=== PATIENT | female | born 1955 | race Caucasian/White ===

== ENCOUNTER 2016-08-12 10:50 | Outpatient (CLI) | payer BC | END 2016-08-12 10:51 | disposition home or self-care (01) | DX: N76.0 Acute vaginitis (principal) ==

== ENCOUNTER → 2016-12-20 | Outpatient (CLI) | payer BC | LOC: LAB.R 13:30 | PROVIDERS: ATTEND Physician Assistant Medical | DX: N39.0 Urinary tract infection, site not specified (principal) | CPT/HCPCS: 81001; 87086 ==

== ENCOUNTER 2017-12-04 11:20 | Outpatient (CLI) | payer OTHER ==
[2017-12-04 17:24] LABS: BASOPHILS % (AUTO) 0.7 %; EOSINOPHILS # (AUTO) 0.1 10^3/uL (0.0-0.7); EOSINOPHILS % (AUTO) 1.9 %; HGB - HEMOGLOBIN 13.2 g/dL (12.0-16.0); LYMPHOCYTES # (AUTO) 1.3 10^3/uL (1.5-3.5); LYMPHOCYTES % (AUTO) 24.9 %; MEAN CORPUSCULAR HEMOGLOBIN 30.8 pg (27.0-31.0); MEAN CORPUSCULAR HGB CONC 34.1 g/dL (32.0-36.0); MEAN CORPUSCULAR VOLUME 90.2 fL (81.0-99.0); MEAN PLATELET VOLUME 6.9 fL (7.9-10.8); MONOCYTES # (AUTO) 0.5 10^3/uL (0.0-1.0); MONOCYTES % (AUTO) 9.2 %; NEUTROPHILS # (AUTO) 3.2 10^3/uL (1.5-6.6); NEUTROPHILS % (AUTO) 63.3 %; PLT - PLATELET COUNT 304 10^3/uL (130-450); RED BLOOD COUNT 4.29 10^6/uL (4.20-5.40); RED CELL DISTRIBUTION WIDTH 13.6 % (12.0-15.0); WHITE BLOOD COUNT 5.1 x10^3/uL (4.8-10.8)
[2017-12-04 17:38] LABS: ALBUMIN 3.6 g/dL (3.2-5.5); ALBUMIN/GLOBULIN RATIO 0.9 (1.0-2.2); BILIRUBIN,TOTAL 0.3 mg/dL (0.2-1.0); CALCIUM 9.1 mg/dL (8.5-10.3); CREATININE 0.8 mg/dL (0.4-1.0); TOTAL PROTEIN 7.5 g/dL (6.7-8.2)
== END 2017-12-04 11:21 | disposition home or self-care (01) ==
LOC: LAB.F 11:20
PROVIDERS: ATTEND Internal Medicine
DX: B97.89 Other viral agents as the cause of diseases classified elsewhere (principal)
CPT/HCPCS: 36415; 80053; 85025

== ENCOUNTER 2019-03-01 08:00 | Outpatient (CLI) | payer BC ==
[2019-03-01 17:48] LABS: CANDIDA GROUP DNA NEGATIVE (NEGATIVE); CANDIDA KRUSEI DNA NEGATIVE (NEGATIVE); TRICHOMONAS VAGINALIS DNA NEGATIVE (NEGATIVE)
== END 2019-03-01 08:01 | disposition home or self-care (01) ==
LOC: LAB.R 08:00
PROVIDERS: ATTEND Obstetrics & Gynecology
DX: N76.0 Acute vaginitis (principal)
CPT/HCPCS: 87661; 87801

== ENCOUNTER 2019-11-27 15:51 | Outpatient (CLI) | payer OTHER ==
--- NOTE | 2019-11-27 19:06 | Ultrasound Report ---
PROCEDURE: Pelvic w/Transvaginal INDICATIONS: THICKENED ENDOMETRUIM TECHNIQUE: Real-time scanning was performed of the pelvic organs, with image documentation. Additional endovagi nal scanning was necessary due to incomplete visualization of the adnexal and endometrial structures by transabdominal scanning. COMPARISON: None. FINDINGS: Transabdominal scanning: Limited scanning through the kidneys shows no hydronephrosis. No pathologi c free abdominal or pelvic fluid. Endovaginal scanning: Uterus: Uterus is normal in size at 7.9 x 3.5 x 4.7 cm. The endometrium measures 7 mm in combined t hickness. A 5 mm diameter cyst is present within the endometrium. There is a right anterior subserosa l fibroid which measures 2.1 x 1.8 x 2.0 cm and previously measured 2.1 x 1.9 x 1.5 cm. There is a le ft anterior subserosal fibroid which measures 0.9 x 0.8 x 0.8 cm that previously measured 1.2 x 1.0 x 0.7 cm. There is a midline anterior intramural fibroid which measures 0.7 x 0.4 x 0.8 cm and was not previously visualized. Nabothian cysts are noted at the cervix. Ovaries: The bilateral ovaries are not visualized. IMPRESSION: 1. 5 mm cyst within the endometrium, unchanged from the study dated 05/18/2019. The endometrium is th e upper limits of normal in a postmenopausal female without abnormal vaginal bleeding. If there is a history of abnormal bleeding, the endometrium is considered abnormally thickened and endometrial biop sy is recommended. 2. Multiple uterine fibroids. 3. Nonvisualization of the ovaries. Reviewed by: Misti Gabriel MD on 11/27/2019 7:04 PM PDT Approved by: Misti Gabriel MD on 11/27/2019 7:04 PM PDT Station ID: [id number]
== END 2019-11-27 15:52 | disposition home or self-care (01) ==
LOC: DI 15:51
PROVIDERS: ATTEND Obstetrics & Gynecology
DX: N85.00 Endometrial hyperplasia, unspecified (principal); N85.8 Other specified noninflammatory disorders of uterus; D25.1 Intramural leiomyoma of uterus; D25.2 Subserosal leiomyoma of uterus
CPT/HCPCS: 76830; 76856

== ENCOUNTER 2020-01-17 07:00 | Outpatient (CLI) | payer OTHER ==
[2020-01-18 18:54] LABS: CANDIDA GROUP DNA POSITIVE (NEGATIVE); CANDIDA KRUSEI DNA NEGATIVE (NEGATIVE); TRICHOMONAS VAGINALIS DNA NEGATIVE (NEGATIVE)
== END 2020-01-17 23:59 | disposition home or self-care (01) ==
LOC: LAB.R 07:00
PROVIDERS: ATTEND Obstetrics & Gynecology
DX: N76.0 Acute vaginitis (principal); N89.8 Other specified noninflammatory disorders of vagina; R30.0 Dysuria
CPT/HCPCS: 87661; 87801

== ENCOUNTER 2020-09-16 10:54 | Outpatient (CLI) | payer OTHER ==
--- NOTE | 2020-09-16 18:48 | Ultrasound Report ---
PROCEDURE: Pelvic w/Transvaginal INDICATIONS: THICKENED ENDOMETRIUM, POSTMENOPAUSAL BLEEDING TECHNIQUE: Real-time scanning was performed of the pelvic organs, with image documentation. Additional endovagi nal scanning was necessary due to incomplete visualization of the adnexal and endometrial structures by transabdominal scanning. COMPARISON: 11/27/2019 FINDINGS: No pathologic free abdominal or pelvic fluid. Uterus: Uterus is normal in size at 8.5 x 3.3 x 4.6 cm. The endometrium measures 9 mm in combined t hickness. Single 3 x 2 x 2 mm endometrial cyst is noted, decreased from prior exam. Anterior subsero saurabh fibroid is again noted measuring 2.2 x 1.4 x 2.1 cm this is located just right of midline. This p reviously measured 2.1 x 1.8 x 2.0 cm. Small calcification along the anterior aspect of the [place] segment. An additional anterior subserosal fibroid just left of midline measures 0.9 x 0.7 x 1.1 cm. This previously measured 0.9 x 0.8 x 0.8 cm. Cervix demonstrates multiple nabothian cysts, other bautista unremarkable. Ovaries: The right ovary measures 1.5 x 1.1 x 1.1 cm. The left ovary measures 1.4 x 0.8 x 1.4 cm. No suspicious cystic or solid mass. IMPRESSION: Grossly unchanged fibroid uterus. 3 mm endometrial cyst slightly decreased in size from most recent comparison. Reviewed by: Sebas Martinez DO on 09/16/2020 5:47 PM BRIANNA Approved by: Sebas Martinez DO on 09/16/2020 5:47 PM AKCONNIE Station ID: [id number]
== END 2020-09-16 10:55 | disposition home or self-care (01) ==
LOC: DI 10:54
PROVIDERS: ATTEND Obstetrics & Gynecology
DX: D25.2 Subserosal leiomyoma of uterus (principal); N85.8 Other specified noninflammatory disorders of uterus

== ENCOUNTER 2020-09-22 08:00 | Outpatient (CLI) | payer OTHER | END 2020-09-22 23:59 | disposition home or self-care (01) | LOC: LAB.R 08:00 | PROVIDERS: ATTEND Emergency Medicine | DX: N39.0 Urinary tract infection, site not specified (principal); R30.0 Dysuria | CPT/HCPCS: 87086 ==

== ENCOUNTER 2020-10-23 10:38 | Outpatient (CLI) | payer OTHER | END 2020-10-23 10:39 | disposition home or self-care (01) | LOC: LAB 10:38 | PROVIDERS: ATTEND Obstetrics & Gynecology | DX: Z01.812 Encounter for preprocedural laboratory examination (principal); R93.89 Abnormal findings on diagnostic imaging of other specified body structures; Z20.822 Contact with and (suspected) exposure to COVID-19 ==

== ENCOUNTER 2020-10-26 08:36 | Day surgery (SDC) | payer MEDICARE, OTHER ==
--- NOTE | 2020-10-25 21:52 | HISTORY & PHYSICAL EXAMINATION ---
HPI - History of Present Illness HPI Comment/Other: C: preop HPI: Pt is here today for an EMB ...................................................................MEMO Pruitt October 18, 2020 11:17 AM Mrs. Martins is a 64 yo here for follow-up on HRT and endometrial thickening Patient is well known to this clinic. She was last seen in clinic on 06/18/20 and on 01/17/2020 for down-titration of HRT. She has been seen on multiple occasions, first for postmenopausal bleeding, and then for management of HRT. At her last visit, we had an extensive discussion regarding plan for titrating off of her estrogen and progesterone. She had nearly stopped taking it all together and then found her mood to be too irritable and was having trouble sleeping. She is struggling with weigth gain. . She also reports vaginal dryness. She has no libido and is frustrated at the imbalance in libido between her and her partner. She is having some cramping and back pain and this concerns her. She underwent a pelvic US on 11/27/19 and was 7 mm in EMS thickness. No VB. She has been taking prometrium to oppose oral estrogen. She did not tolerate estrogen patches. She has recently requested to restart HRT. However, she is feeling aching and fullness in her uterus. She underwent a pelvic us. Results are below. EMS is 9 mm, which is above threshold for postmenopausal women. Reviewed concern for continuing HRT under current regimen with continued thickening. At minimum, should have EMB. Does not want to undergo EMB again. Agrees to hysteroscopy D&C. No changes in health hx other than as noted in HPI. Uterus: Uterus is normal in size at 8.5 x 3.3 x 4.6 cm. The endonnetrium measures 9 mm in combined thickness. Single 3 x 2 x 2 mm endonnetrial cyst is noted, decreased from prior exam. Anterior subserosal fibroid is again noted measuring 2.2 x 1.4 x 2.1 cm this is located just right of midline. This previously measured 2.1 x 1.8 x 2.0 cm. Small calcification along the anterior aspect of the lower uterine segment. An additional anterior subserosal fibroid just left of midline measures 0.9 x 0.7 x 1.1 cm. This previously measured 0.9 x 0.8 x 0.8 cm. Cervix demonstrates multiple nabothian cysts, otherwise unremarkable. Ovaries: The right ovary measures 1.5 x 1.1 x 1.1 cm. The left ovary measures 1.4 x 0.8 x 1.4 cm. No suspicious cystic or solid mass. IMPRESSION: Grossly unchanged fibroid uterus. 3 mm endometrial cyst slightly decreased in size from most recent comparison. Allergies: SULFA (Critical) * WALNUTS (Critical) * ALL NUTS EXCEPT PEANUTS (Critical) * MELOXICAM (Severe) Medications: COMBIPATCH 0.05-0.14 MG/DAY TRANSDERMAL PATCH TWICE WEEKLY (ESTRADIOL- NORETHINDRONE ACET) 1 patch transdermally, change twice per week.; Route: TRANSDERMAL BUPROPION HCL ER (SR) 100 MG ORAL TABLET EXTENDED RELEASE 12 HOUR (BUPROPION HCL) Take one tablet by mouth daily in the morning. Ok to increase to 2 tablets PO QAM in 2 weeks; Route: ORAL FLUCONAZOLE 150 MG ORAL TABLET (FLUCONAZOLE) Take one tablet by mouth every 3 days for 2 doses; Route: ORAL PROGESTERONE MICRONIZED 100 MG ORAL CAPSULE (PROGESTERONE MICRONIZED) Take 2 tablets by mouth daily; Route: ORAL ALBUTEROL SULFATE HFA 108 (90 BASE) MCG/ACT INHALATION AEROSOL SOLUTION (ALBUTEROL SULFATE) Take 1 - 2 puffs every 6 hours prn cough or wheezing.; Route: INHALATION ESTRACE 0.5 MG ORAL TABLET (ESTRADIOL) Take one tablet by mouth rodger (as reviewed in clinic); Route: ORAL IBUPROFEN 600 MG ORAL TABLET (IBUPROFEN) Take one tablet by mouth every 6 horus as needed for pain; Route: ORAL Problems: Preoperative examination (ICD-V72.84) (DWB66-O41.818) Near syncope (ICD-780.2) (VUM25-Y63) Chest tightness (ICD-786.59) (CKU99-J36.89) Pelvic pain (ICD-625.9) (IAN83-H81.2) Dizziness (ICD-780.4) (ZCD55-R34) Fatigue (ICD-780.79) (VFW25-G62.83) Vaginal discharge (ICD-623.5) (MAK05-T96.8) Thickened endometrium (ICD-793.5) (ZTN59-I12.00) SINUSITIS, ACUTE NOS (ICD-461.9) (NMH47-H85.90) Bronchitis, acute, w or w/o bronchospasm (ICD-466.0) (HDK83-R81.9) Menopause-related vasomotor symptoms (ICD-627.2) (BWA77-Z88.1) Vaginitis (ICD-616.10) (OVW79-T12.0) Dysuria (ICD-788.1) (RKX00-A07.0) Chronic UTI (ICD-599.0) (DWV68-L81.0) Postmenopausal bleeding (ICD-627.1) (KWV12-C46.0) Postmenopausal on hormone replacement therapy (ICD-V07.4) (SEZ58-H42.890) Postmenopausal bleeding (ICD-627.1) (GHO30-Z09.0) Pain in right lower leg (ICD-729.5) (LEW69-S49.661) HORMONE REPLACEMENT THERAPY (ICD-V07.4) (SCQ07-H02.890) OTITIS MEDIA, ACUTE (ICD-382.9) (IID75-U42.90) Vital Signs: Patient Profile: 65 Years Old Female Height: 67.5 inches BP sittin / 83 Cuff size: regular Vitals Entered By: MEMO Pruitt (October 18, 2020 11:17 AM) Meds Reviewed: Done 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 Physical Constitutional: GEN: NAD HEAD: NCAT EYES: No scleral icterus or conjunctival injection CV: RRR RESP: CTAB, normal effort ABD: S&NT/ND PSYCH: appropriate affect NEURO: alert and oriented, normal gait and coordination EXT: WWP Risk Factors-CCC with prev: Smoked Tobacco Use: Never smoker Smokeless Tobacco Use: Never Passive Smoke Exposure: no Alcohol Use: no Drug Use: no Impression & Recommendations: Problem # 1: Preoperative examination (ICD-V72.84) (QAX07-X02.818) Orders: PRE OP -84196 (CPT-79842) Reviewed risks/benefits/alternatives to hysteroscopy/polpectomy Risks include, but are not limited to, bleeding, infection, damage to neatby tissue and organs. On average, expected EBL is minimal. In the event of an unanticipated blood loss, patient is willing to undergo transfusion. Risks of blood transfusion include infection as well as transfusion reaction Risk of HIV 1/2million nationwide Risk of Hepatitis 1/1 million Risks of transfusion reaction and mgt reviewed Infection risk low given that no incisions alexus be made and we will be using physiologic orifices. Will provide IV abx in the event of uterine perforation. Damage to nearby tissue and organs was reviewed with emphasis on uterine perforation and management, which can include surgical intervention based on bleeding risk. Reviewed management of complications and efforts to avoid such outcomes but reviewed that they may occur despite our best efforts. Patient agreed to the aforementioned procedure and written informed consent was obtained. Will pretreat with misoprostol. 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 Meds/Allgy - Home Medications Home Medications: Ambulatory Orders Medication Instructions Recorded Confirmed Albuterol Sulfate [Proair Hfa 1 - 2 puffs INH Q4H PRN 10/24/20 10/24/20 Inhaler] Estradiol [Estrace] 0.5 mg PO DAILY 10/24/20 10/24/20 Ibuprofen [Motrin] 600 mg PO Q6H PRN 10/24/20 10/24/20 Lisinopril [Prinivil] 5 mg PO DAILY 10/24/20 10/24/20 Progesterone,Micronized 200 mg PO DAILY 10/24/20 10/24/20 [Prometrium] - Allergies Allergies/Adverse Reactions: Allergies Allergy/AdvReac Type Severity Reaction Status Date / Time Sulfa (Sulfonamide Allergy Emesis Verified 10/24/20 10:40 Antibiotics) walnut Allergy Anaphylaxis Verified 10/24/20 10:40
[~2020-10-26 08:36] MED LIST: ACETAMINOPHEN 1,000 MG/100 ML 100 ML IV ONE; CELECOXIB 100 MG CAPSULE PO ONE; GABAPENTIN 400 MG CAPSULE ONE
--- OUTSIDE RECORDS SUMMARY | 2020-10-26 08:38 | EXTERNAL MEDICAL SUMMARY RPT | Continuity of Care Document ---
:1955 Demographics Phone Unavailable Preferred Language Unknown Marital Status Unknown Spiritism Affiliation Unknown Race Unknown Ethnic Group Unknown Author Organization [facility] Address [address] [phone] Phone Allergies Encounters Medications Problems Results
[2020-10-26] MEDS ORDERED: LACTATED RINGERS 1,000 ML IV ONE ×2 (09:23→11:25)
[2020-10-26] MEDS ORDERED: ePHEDrine 50 MG/ML VIAL IVP PRN (09:56)
[2020-10-26] MEDS ORDERED: METOCLOPRAMIDE 10 MG/2 ML VIAL IVP PRN (09:56)
[2020-10-26] MEDS ORDERED: ONDANSETRON 4 MG/2 ML VIAL IVP PRN (09:56)
[2020-10-26] MEDS ORDERED: NALOXONE 0.4 MG/ML VIAL IVP PRN (09:56)
[2020-10-26] MEDS ORDERED: fentaNYL 100 MCG/2 ML VIAL IVP PRN (09:56)
[2020-10-26] MEDS ORDERED: MORPHINE 2 MG/ML CARPUJECT IVP PRN (09:56)
[2020-10-26] MEDS ORDERED: ATROPINE ABBOJECT 1 MG/10 ML SYRINGE IVP PRN (09:56)
--- NOTE | 2020-10-26 09:56 | ANESTHESIA ---
Pre-Anesthesia VS, & Labs - Diagnosis thickened endometrium - Procedure myosure hysteroscopy, D&C, possible polypectomy Vital Signs: Temp Pulse Resp BP Pulse Ox 36.6 C 87 18 142/98 H 99 10/26/20 08:55 10/26/20 08:55 10/26/20 08:55 10/26/20 08:55 10/26/20 08:55 Height: 5 ft 8 in Weight (kg): 92 kg Body Mass Index: 30.8 BMI Classification: Obese - NPO >8 hours - Is Patient ?: No - Lab Results Current Lab Results: Laboratory Tests 10/26/20 09:16: POC Whole Bld Glucose 110 H Lab results reviewed: Yes Home Medications and Allergies Home Medications: Ambulatory Orders Albuterol Sulfate [Proair Hfa Inhaler] 1 - 2 puffs INH Q4H PRN 10/24/20 Estradiol [Estrace] 0.5 mg PO DAILY 10/24/20 Ibuprofen [Motrin] 600 mg PO Q6H PRN 10/24/20 Lisinopril [Prinivil] 5 mg PO DAILY 10/24/20 Progesterone,Micronized [Prometrium] 200 mg PO DAILY 10/24/20 Albuterol Sulfate [Proair Hfa Inhaler] 1 - 2 puffs INH Q4H PRN 10/24/20 Estradiol [Estrace] 0.5 mg PO DAILY 10/24/20 Ibuprofen [Motrin] 600 mg PO Q6H PRN 10/24/20 Lisinopril [Prinivil] 5 mg PO DAILY 10/24/20 Progesterone,Micronized [Prometrium] 200 mg PO DAILY 10/24/20 Allergies/Adverse Reactions: Allergies Allergy/AdvReac Type Severity Reaction Status Date / Time Sulfa (Sulfonamide Allergy Emesis Verified 10/24/20 10:40 Antibiotics) walnut Allergy Anaphylaxis Verified 10/24/20 10:40 Anes History & Medical History - Anesthetic History Anesthesia Complications: reports: No previous complications Family history of Anesthesia Complications: Denies Family history of Malignant Hyperthermia: Denies - Medical History Cardiovascular: reports: Angina, Arrhythmia Pulmonary: reports: Shortness of breath Gastrointestinal: reports: Chronic constipation, Other Urinary: reports: None Musculoskeletal: reports: None Endocrine/Autoimmune: reports: None Skin: reports: None - Surgical History General: reports: Colonoscopy Gynecologic: reports: section Exam General: Alert, Oriented x3, Cooperative Dental: Dentures full Lower Mouth Openin Fingerbreadth Neck Mobility: Normal Mallampati classification: II Thyromental Distance: 4-6 cm Respiratory: Lungs clear, Normal breath sounds, No respiratory distress Cardiovascular: Regular rate Neurological: Normal speech Mental/Cognitive Status: Alert/Oriented X3, Normal for patient Cognitive Status: Within normal limits Plan Anesthesia Type: General Consent for Procedure(s) Verified and Reviewed: Yes Code Status: Attempt Resuscitation ASA classification: 2-Mild systemic disease Is this case an emergency?: No
[2020-10-26] MEDS ORDERED: LACTATED RINGERS 1,000 ML IV SCH (10:00)
[2020-10-26] MEDS ORDERED: LACTATED RINGERS 500 ML IV ONE (10:08)
[2020-10-26] MEDS ORDERED: PROPOFOL 200 MG/20 ML VIAL IVP ONE (10:13)
[2020-10-26] MEDS ORDERED: MIDAZOLAM 2 MG/2 ML VIAL ONE (10:13)
[2020-10-26] MEDS ORDERED: LIDOCAINE-MPF 2% 5 ML VIAL ONE (10:13)
[2020-10-26] MEDS ORDERED: fentaNYL 100 MCG/2 ML VIAL ONE (10:13)
[2020-10-26] MEDS ORDERED: BUPIVACAINE 0.5%-EPI 1:200000 PF 30 ML VIAL ONE (10:22)
[2020-10-26] MEDS ORDERED: SILVER NITRATE APPLICATOR TOP ONE (10:22)
[2020-10-26] MEDS ORDERED: ONDANSETRON 4 MG/2 ML VIAL ONE (10:53)
[2020-10-26] MEDS ORDERED: ePHEDrine 50 MG/ML VIAL IVP ONE (11:02)
[2020-10-26] MEDS ORDERED: BUPIVACAINE 0.5%-EPI 1:200000 PF 30 ML VIAL SUBQ ONE (11:09)
[2020-10-26] MEDS ORDERED: oxyCODONE 5 MG TABLET PO PRN (11:36)
--- NOTE | 2020-10-26 11:39 | OPERATIVE REPORT ---
Operative Report - General Procedure Date: 10/26/20 Planned Procedure: Hysteroscopy D&C with possible polypectomy Pre-Op Diagnosis: Thickened endometrium Procedure Performed: Hysteroscopy D&C with polypectomy Post Op Diagnosis: Endometrial polyp - Procedure Note Primary Surgeon: Pamela Woods MD Anesthesia Provider: DIDI De La Rosa Anesthesia Technique: General LMA Pathology: Uterine contents IV Fluids (mL): 1,000 Estimated Blood Loss (mL): 5 Urine Output (mL): 300 Indications: Mrs. Martins is a 64 yo here for follow-up on HRT and endometrial thickening Patient is well known to this clinic. She was last seen in clinic on 06/18/20 and on 01/17/2020 for down-titration of HRT. She has been seen on multiple occasions, first for postmenopausal bleeding, and then for management of HRT. At her last visit, we had an extensive discussion regarding plan for titrating off of her estrogen and progesterone. She had nearly stopped taking it all together and then found her mood to be too irritable and was having trouble sleeping. She is struggling with weigth gain. . She also reports vaginal dryness. She has no libido and is frustrated at the imbalance in libido between her and her partner. She is having some cramping and back pain and this concerns her. She underwent a pelvic US on 11/27/19 and was 7 mm in EMS thickness. No VB. She has been taking prometrium to oppose oral estrogen. She did not tolerate estrogen patches. She has recently requested to restart HRT. However, she is feeling aching and fullness in her uterus. She underwent a pelvic us. Results are below. EMS is 9 mm, which is above threshold for postmenopausal women. Reviewed concern for continuing HRT under current regimen with continued thickening. At minimum, should have EMB. Does not want to undergo EMB again. Agrees to hysteroscopy D&C. Findings: Small flesh colored endometrial polyp. Normal cavity and tubal ostia after removal of polyp. Complications: None - Other Other Information/Narrative: Risks benefits and alternatives to the procedure were reviewed. Consent was again confirmed. Patient was taken to the operating room where she underwent general anesthesia. She was positioned in dorsolithotomy position with legs resting in yellowfin stirrups. She was prepped and draped in the usual sterile fashion. Preoperative antibiotics were not indicated. Preoperative checklist was performed. Exam under anesthesia was performed. Speculum was placed in the vagina and the cervix was visualized. Single-tooth tenaculum was placed at the anterior cervical lip. Paracervical block was administered using a total of 20 cc of 1% lidocaine with epinephrine was injected at the 4:00 and 8:00 positions lateral to the portio of the cervix. The cervical os was serially dilated with Hegar dilators to accommodate the caliber of the diagnostic hysteroscope. The hyst eroscope was inserted and findings were noted as above. The hysteroscopic morcellator was inserted through the operative port. The intrauterine polyps were morcellated under direct visualization. Uterine cavity was smooth at close of the procedure. Hysteroscope was removed. All instruments were removed from the uterus. Tenaculum was removed. Tenaculum sites were noted to be hemostatic. All instruments were removed from the vagina. Procedure was well-tolerated without complication. Fluid deficit:110 cc NS
[2020-10-26] MEDS: HYDROmorphone 0.5 MG/0.5 ML SYRINGE IVP PRN ×2 (11:43→11:57)
[2020-10-26] MEDS ORDERED: HYDROmorphone 1 MG/ML CARPUJECT ONE (11:44)
[2020-10-26 13:31] VITALS: BP 139/84
--- NOTE | 2020-10-26 14:28 | ANESTHESIA POST OP EVALUATION ---
Anesthesia Post Eval - Post Anesthesia Eval Vitals: Last Vital Signs Temp 36.3 C L 10/26/20 13:29 Pulse 58 L 10/26/20 13:31 Resp 12 10/26/20 13:31 BP 139/84 H 10/26/20 13:31 Pulse Ox 94 10/26/20 13:31 CV Function Including HR & BP: Stable Pain Control: Satisfactory Nausea & Vomiting: Negative Mental Status: Baseline Respiratory Status: Airway Patent Hydration Status: Satisfactory Anesthesia Complications: None
== END 2020-10-26 08:37 | disposition home or self-care (01) ==
LOC: SDS 08:36
PROVIDERS: ATTEND Obstetrics & Gynecology
PROC: 0UDB8ZZ Extraction of Endometrium, Via Natural or Artificial Opening Endoscopic (ICD-10-PCS; 2020-10-26)
PROC: 0UB98ZZ Excision of Uterus, Via Natural or Artificial Opening Endoscopic (ICD-10-PCS; principal; 2020-10-26 09:30)
DX: R93.89 Abnormal findings on diagnostic imaging of other specified body structures (principal); N84.0 Polyp of corpus uteri; E66.9 Obesity, unspecified; Z68.30 Body mass index [BMI] 30.0-30.9, adult
CPT/HCPCS: 58558; A9270; J0131; J1170; J7120

== ENCOUNTER 2021-05-19 14:36 | Outpatient (CLI) | payer OTHER ==
--- NOTE | 2021-05-19 15:28 | Ultrasound Report ---
PROCEDURE: Pelvic w/Transvaginal INDICATIONS: PELVIC PAIN TECHNIQUE: Real-time scanning was performed of the pelvic organs, with image documentation. Additional endovagi nal scanning was necessary due to incomplete visualization of the adnexal and endometrial structures by transabdominal scanning. COMPARISON: 09/16/2020. FINDINGS: No pathologic free abdominal or pelvic fluid. Uterus: Uterus is normal in size at 8.1 x 3.5 x 4.2 cm. The endometrium measures 2 mm in combined t hickness. Uterine echotexture is heterogenous. The cervix demonstrates nabothian cysts. A right ante rior subserosal fibroid measures 1.9 x 1.4 x 2.3 cm. A left anterior subserosal fibroid measures 0.6 x 0.5 cm. A mid anterior intramural calcification measures 2 mm. Ovaries: Both ovaries are not well seen due to overlying bowel gas. IMPRESSION: 1. The ovaries are not well seen due to overlying bowel gas. 2. Uterine fibroids, unchanged compared to the prior ultrasound on 09/16/2020., Reviewed by: Reynaldo Talley on 05/19/2021 2:27 PM AK Approved by: Reynaldo Talley on 05/19/2021 2:27 PM [facility] Station ID: [id number]
== END 2021-05-19 14:37 | disposition home or self-care (01) ==
LOC: DI 14:36
PROVIDERS: ATTEND Obstetrics & Gynecology
DX: R10.2 Pelvic and perineal pain (principal); D25.2 Subserosal leiomyoma of uterus; Z79.890 Hormone replacement therapy

== ENCOUNTER 2021-09-02 08:00 | Outpatient (CLI) | payer OTHER ==
--- NOTE | 2021-09-02 16:27 | XRAY Report ---
PROCEDURE: Chest 2 View X-Ray INDICATIONS: ACUTE COUGH,FATIGUE TECHNIQUE: 2 view(s) of the chest. COMPARISON: None. FINDINGS: Surgical changes and devices: None. Lungs and pleura: Minimal lingular atelectasis and or infiltrate at the base Mediastinum: Mediastinal contours are normal. Heart size is normal. Bones and chest wall: No suspicious bony abnormalities. Soft tissues appear unremarkable. IMPRESSION: Minimal atelectasis and or infiltrate, left lung base Reviewed by: Nicholas Cintron MD on 09/02/2021 3:25 PM AKDT Approved by: Nicholas Cintron MD on 09/02/2021 3:25 PM AKDT Station ID: [id number]
== END 2021-09-02 23:59 | disposition home or self-care (01) ==
LOC: DI.S 08:00
PROVIDERS: ATTEND Physician Assistant Medical
DX: R91.8 Other nonspecific abnormal finding of lung field (principal); R05.1 Acute cough; R09.81 Nasal congestion; R53.83 Other fatigue; Z20.822 Contact with and (suspected) exposure to COVID-19

== ENCOUNTER 2021-10-20 14:09 | Outpatient (CLI) | payer OTHER ==
[2021-10-20 18:43] LABS: CK- CREATINE KINASE 125 IU/L (22-269)
[2021-10-20 18:53] LABS: THYROID STIMULATING HORMONE 1.29 uIU/mL (0.34-5.60)
[2021-10-20 19:04] LABS: FOLATE 23.1 ng/mL (5.90 - >24.8)
[2021-10-20 19:23] LABS: CRP - C-REACTIVE PROTEIN < 1.0 mg/dL (0-1.0)
[2021-10-20 19:48] LABS: RHEUMATOID FACTOR NEGATIVE (Negative)
[2021-10-21 07:40] LABS: ESTIMATED AVERAGE GLUCOSE 114 mg/dL (70-100); HEMOGLOBIN A1c% 5.6 % (4.27-6.07)
[2021-10-22 07:08] LABS: HCV AB 0.1 s/co ratio (0.0-0.9); HEPATITIS BE ANTIGEN Negative (Negative); HIV SCREEN 4TH GENERATION Non Reactive (Non Reactive)
[2021-10-23 18:09] LABS: ANTI-DNA (DS) AB QN 4 IU/mL (0-9); CENTROMERE B ANTIBODIES <0.2 AI (0.0-0.9); CHROMATIN ANTIBODIES <0.2 AI (0.0-0.9); JO-1 AB <0.2 AI (0.0-0.9); RIBOSOMAL P ANTIBODIES <0.2 AI (0.0-0.9); RNP ANTIBODIES 0.4 AI (0.0-0.9); SCLERODERMA-70 ANTIBODIES <0.2 AI (0.0-0.9); SJOGREN'S ANTI-SS-A <0.2 AI (0.0-0.9); SJOGREN'S ANTI-SS-B <0.2 AI (0.0-0.9); SMITH ANTIBODIES <0.2 AI (0.0-0.9); SMITH/RNP ANTIBODIES <0.2 AI (0.0-0.9)
[2021-10-23 21:07] LABS: CYCLIC CITRULLINATED PEP IGG/A 16 units (0-19)
== END 2021-10-20 14:10 | disposition home or self-care (01) ==
LOC: LAB.S 14:09
PROVIDERS: ATTEND Student in an Organized Health Care Education/Training Program
DX: R20.0 Anesthesia of skin (principal)
CPT/HCPCS: 36415; 82550; 82607; 82746; 83036; 84207; 84443; 85651; 86140; 86200; 86225; 86235; 86430; 86803; 87350; 87389

== ENCOUNTER 2021-10-29 11:43 | Outpatient (CLI) | payer OTHER | END 2021-10-29 11:44 | disposition home or self-care (01) | LOC: LAB.S 11:43 | PROVIDERS: ATTEND Student in an Organized Health Care Education/Training Program | DX: R20.0 Anesthesia of skin (principal) | CPT/HCPCS: 84207 ==

== ENCOUNTER 2022-02-14 11:40 | Outpatient (CLI) | payer OTHER ==
--- NOTE | 2022-02-14 11:57 | XRAY Report ---
PROCEDURE: Lumbar Spine 2 View INDICATIONS: LUMBAR SPRAIN TECHNIQUE: 2 views of the lumbar spine were acquired. COMPARISON: None. FINDINGS: Bones: 5 [id number] vertebrae are present. There is normal bony alignment. No vertebral body compression fractures. No suspicious bony lesions. There is a minimal lumbar scoliosis convex to the right. There is some mild degenerative disc disease present L3-L4. Soft tissues: Overlying bowel gas pattern is normal. No suspicious soft tissue calcifications. IMPRESSION: 1. No evidence for acute osseous abnormality involving the lumbar spine. 2. Mild degenerative disc disease present L3-L4. 4. Minimal lumbar scoliosis convex to the right. Reviewed by: Sam Escobedo MD on 02/14/2022 11:56 AM PDT Approved by: Sam Escobedo MD on 02/14/2022 11:56 AM PDT Station ID: [id number]
== END 2022-02-14 11:41 | disposition home or self-care (01) ==
LOC: DI.S 11:40
PROVIDERS: ATTEND Nurse Practitioner Family
DX: S33.5XXA Sprain of ligaments of lumbar spine, initial encounter (principal); M41.9 Scoliosis, unspecified

== ENCOUNTER 2023-03-07 13:23 | Outpatient (CLI) | payer OTHER ==
--- NOTE | 2023-03-07 17:28 | XRAY Report ---
PROCEDURE: Chest 2 View X-Ray INDICATIONS: SHORTNESS OF BREATH TECHNIQUE: 2 views of the chest were acquired. COMPARISON: 09/02/2021 FINDINGS: Surgical changes and devices: None. Lungs and pleura: No pleural effusions or pneumothorax. Lungs are clear. Mediastinum: Mediastinal contours appear normal. Heart size is normal. Bones and chest wall: No suspicious bony lesions. Overlying soft tissues appear unremarkable. IMPRESSION: No acute cardiopulmonary process. Reviewed by: Reynaldo Talley on 03/07/2023 5:27 PM PDT Approved by: Reynaldo Talley on 03/07/2023 5:27 PM PDT Station ID: [id number]
== END 2023-03-07 23:59 | disposition home or self-care (01) ==
LOC: DI.S 13:23
PROVIDERS: ATTEND Physician Assistant
DX: R06.02 Shortness of breath (principal)

== ENCOUNTER 2023-03-31 16:45 | Emergency (ER) | payer OTHER ==
[2023-03-31 16:59] VITALS: O2SAT 100
[2023-03-31] MEDS ORDERED: SODIUM CHLORIDE 0.9% 1,000 ML IV STA (17:03)
[2023-03-31 17:16] LABS: BASOPHILS % (AUTO) 0.5 %; EOSINOPHILS # (AUTO) 0.1 10^3/uL (0.0-0.7); EOSINOPHILS % (AUTO) 1.7 %; HCT - HEMATOCRIT 39.7 % (37.0-47.0); HGB - HEMOGLOBIN 13.3 g/dL (12.0-16.0); LYMPHOCYTES # (AUTO) 1.6 10^3/uL (1.5-3.5); LYMPHOCYTES % (AUTO) 27.9 %; MEAN CORPUSCULAR HEMOGLOBIN 29.7 pg (27.0-31.0); MEAN CORPUSCULAR HGB CONC 33.5 g/dL (32.0-36.0); MEAN CORPUSCULAR VOLUME 88.6 fL (81.0-99.0); MEAN PLATELET VOLUME 8.2 fL (7.9-10.8); MONOCYTES # (AUTO) 0.3 10^3/uL (0.0-1.0); MONOCYTES % (AUTO) 5.6 %; NEUTROPHILS # (AUTO) 3.8 10^3/uL (1.5-6.6); PLT - PLATELET COUNT 306 10^3/uL (130-450); RED BLOOD COUNT 4.48 10^6/uL (4.20-5.40); RED CELL DISTRIBUTION WIDTH 12.5 % (12.0-15.0); WHITE BLOOD COUNT 5.9 x10^3/uL (4.8-10.8)
[2023-03-31 17:44] LABS: ALBUMIN 3.9 g/dL (3.2-5.5); ALBUMIN/GLOBULIN RATIO 1.2 (1.0-2.2); BILIRUBIN,TOTAL 0.3 mg/dL (0.2-1.0); CALCIUM 9.3 mg/dL (8.5-10.3); CREATININE 0.6 mg/dL (0.6-1.3); POTASSIUM 3.9 mmol/L (3.5-4.5); TOTAL PROTEIN 7.1 g/dL (6.4-8.9)
--- NOTE | 2023-03-31 18:44 | ED Physician Documentation ---
History of Present Illness - Stated complaint Stated Complaint: DEHYDRATED - Chief complaint Chief Complaint: General - History obtained from History obtained from: Patient - History of Present Illness Pain level max: 0 Pain level now: 0 - Additonal information Additional information: Patient is a 67-year-old female who presents to the emergency department stating that she had COVID about 2 weeks ago. Since that time she has had fatigue. She had nausea, vomiting and diarrhea. She had a small amount of blood in the vomit, none currently. No longer has nausea. Diarrhea has resolved. No abdominal pain. No chest pain. No shortness of breath. She went to the walk- in clinic and was sent here for evaluation. No fevers. No chills. She had a negative chest x-ray earlier today reportedly. Review of Systems Constitutional: denies: Fever, Chills Respiratory: denies: Cough GI: denies: Abdominal Pain, Diarrhea, Hematemesis, Bloody / black stool : denies: Dysuria Skin: denies: Rash Musculoskeletal: denies: Neck pain, Back pain Neurologic: denies: Headache PD PAST MEDICAL HISTORY - Past Medical History Past Medical History: Yes Cardiovascular: Hypertension - Present Medications Home Medications: Ambulatory Orders Medication Instructions Recorded Confirmed Estradiol [Estrace] 0.5 mg PO DAILY 10/24/20 03/31/23 Progesterone, Micronized 200 mg PO DAILY 10/24/20 03/31/23 [Prometrium] Ibuprofen [Motrin] 600 mg PO Q6H PRN #60 tab 10/26/20 03/31/23 - Allergies Allergies/Adverse Reactions: Allergies Allergy/AdvReac Type Severity Reaction Status Date / Time Sulfa (Sulfonamide Allergy Emesis Verified 10/24/20 10:40 Antibiotics) walnut Allergy Anaphylaxis Verified 10/24/20 10:40 - Social History Does the pt smoke?: No Smoking Status: Never smoker PD ED PE NORMAL - Vitals Vital signs reviewed: Yes - General General: Alert and oriented X 3, No acute distress - HEENT HEENT: Moist mucous membranes - Neck Neck: Supple, no meningeal sign - Cardiac Cardiac: RRR, Strong equal pulses - Respiratory Respiratory: No respiratory distress, Clear bilaterally - Abdomen Abdomen: Soft, Non tender, Non distended - Derm Derm: Warm and dry - Extremities Extremities: No edema, No calf tenderness / cord - Neuro Neuro: Alert and oriented X 3 - Psych Psych: Normal mood, Normal affect Results - Vitals Vitals: Vital Signs - 24 hr 03/31/23 03/31/23 03/31/23 16:55 18:43 20:29 Temperature 36.8 C 36.8 C Heart Rate 99 64 64 Respiratory 18 16 16 Rate Blood Pressure 130/98 H 169/86 H 153/80 H O2 Saturation 100 100 100 Oxygen O2 Source Room air - Labs Labs: Laboratory Tests 03/31/23 03/31/23 03/31/23 17:09 17:09 17:09 WBC 5.9 RBC 4.48 Hgb 13.3 Hct 39.7 MCV 88.6 MCH 29.7 MCHC 33.5 RDW 12.5 Plt Count 306 MPV 8.2 Neut # (Auto) 3.8 Lymph # (Auto) 1.6 [place] # (Auto) 0.3 Eos # (Auto) 0.1 Baso # (Auto) 0.0 Absolute Nucleated RBC 0.00 Nucleated RBC % 0.0 Sodium 134 L Potassium 3.9 Chloride 100 L Carbon Dioxide 26 Anion Gap 8.0 BUN 16 Creatinine 0.6 Estimated GFR (MDRD) 100 Glucose 145 H Calcium 9.3 Phosphorus 4.1 Magnesium 1.5 L Total Bilirubin 0.3 AST 18 ALT 15 Alkaline Phosphatase 52 Total Protein 7.1 Albumin 3.9 Globulin 3.2 Albumin/Globulin Ratio 1.2 Lipase 29 PD Medical Decision Making - ED course Complexity details: reviewed results, re-evaluated patient, considered differential, d/w patient ED course: Patient feels much better after IV fluids. Also found to be hypomagnesemic, this was replaced as well. Tolerating p.o. without difficulty here. No active vomiting. No anemia. No indication for advanced imaging. Patient is well- appearing, nontoxic. Afebrile. No hypoxia. No respiratory distress. Patient counseled regarding signs and symptoms for which I believe and urgent re- evaluation would be necessary. Patient with good understanding of and agreement to plan and is comfortable going home at this time This document was made in part using voice recognition software. While efforts are made to proofread this document, sound alike and grammatical errors may occur. Departure - Departure Disposition: 01 Home, Self Care Clinical Impression: Dehydration, Hypomagnesemia Condition: Good Instructions: ED Dehydration Follow-Up: Jairo Villatoro MD [Primary Care Provider] - Within 1 week Comments: Your magnesium is low today and this was replaced. You were also given IV fluids. Please follow-up with your doctor for further care. Please return if you worsen. Make sure you are drinking plenty of fluids at home. Forms: PCP List, Activity restrictions Discharge Date/Time: 03/31/23 20:35
[2023-03-31 19:02] LABS: MAGNESIUM 1.5 mg/dL (1.7-2.3); PHOSPHORUS 4.1 mg/dL (2.5-5.0)
[2023-03-31] MEDS ORDERED: MAGNESIUM SULFATE 2 GRAM 2 GM/50 ML BAG IV ONE (19:03)
[2023-03-31 20:36] VITALS: BP 153/80
== END 2023-03-31 20:35 | disposition home or self-care (01) ==
LOC: ED 16:45
DX: R53.83 Other fatigue (principal); E86.0 Dehydration; E83.42 Hypomagnesemia; U07.1 COVID-19; R05.1 Acute cough; K92.0 Hematemesis
CPT/HCPCS: 36415; 80053; 83690; 83735; 84100; 85025; 96365; 99283

== ENCOUNTER 2023-05-21 15:41 | Outpatient (CLI) | payer OTHER ==
--- NOTE | 2023-05-21 17:28 | Ultrasound Report ---
PROCEDURE: Pelvic w/Transvaginal INDICATIONS: PELVIC PAIN TECHNIQUE: Real-time scanning was performed of the pelvic organs, with image documentation. Additional endovagi nal scanning was necessary due to incomplete visualization of the adnexal and endometrial structures by transabdominal scanning. COMPARISON: None. FINDINGS: Uterus: Uterus is anteverted and normal in size at 7.9 x 3.8 x 4.9 cm. The myometrium is heterogene ous.. The endometrium measures 6 mm in combined thickness. A few small uterine fibroids are present , predominantly subserosal and intramural. Largest measures 1.9 x 1.4 x 1 2.3 cm. Ovaries: The right ovary measures 2.3 x 1.5 cm. The left ovary measures 1.9 x 1.8 x 1.4 cm, with a calculated ovarian volume of 2.4 cc. The ovaries have a normal sonographic appearance. Less than 12 follicles can be seen in each ovary. No adnexal masses are seen. No cystic lesions measuring greate r than 3 cm. Other: No pathologic free abdominal or pelvic fluid. IMPRESSION: A few solid, small uterine fibroids. Reviewed by: Yunior Alexander MD on 05/21/2023 5:26 PM PST Approved by: Yunior Alexander MD on 05/21/2023 5:26 PM PST Station ID: [id number]
== END 2023-05-21 15:42 | disposition home or self-care (01) ==
LOC: DI 15:41
PROVIDERS: ATTEND Nurse Practitioner
DX: R10.2 Pelvic and perineal pain (principal); D25.1 Intramural leiomyoma of uterus; D25.2 Subserosal leiomyoma of uterus

== ENCOUNTER 2023-06-04 08:42 | Outpatient (CLI) | payer OTHER ==
--- NOTE | 2023-06-04 16:49 | Ultrasound Report ---
LIMITED ULTRASOUND OF LEFT BREAST: 06/04/2023 CLINICAL: Patient returns today to evaluate a focal asymmetry in the left breast. Comparison is made to exams dated: 06/04/2023 mammogram - [facility], 04/15/2023 [facility], 09/05/2017 mammogram, 01/15/2016 mammogram - [facility], 07/01/2012 mammogram - [facility], and 03/16/2009 mammogram - [facility]. Color flow and real-time ultrasound of the left breast 1 o'clock region were performed on the areas of interest. There is a 0.6 cm oval cyst in the left breast at 1 o'clock middle depth. This oval cyst is anechoic with a well-defined boundary and posterior acoustic enhancement. This correlates with mammography f indings. Color flow imaging demonstrates that there is no vascularity present. IMPRESSION: BENIGN There is no sonographic evidence of malignancy. The 0.6 cm oval cyst in the left breast is benign. Return to annual mammogram screening schedule is recommended. This exam was interpreted at Station ID: [id number]. Electronically Signed By: Misti martiin/:06/04/2023 10:28:12 Ultrasound BI-RADS: 2 Benign BI-RADS CATEGORY: (2) - 2 RECOMMENDATION: (ANNUAL) - Recommend routine annual screening mammography. [id number] return to screening LATERALITY: (B)
--- NOTE | 2023-06-04 16:49 | Mammography Report ---
UNILATERAL LEFT DIGITAL DIAGNOSTIC MAMMOGRAM 3D/2D WITH SPOT COMPRESSION: 06/04/2023 CLINICAL: Patient returns today to evaluate an asymmetry in the left breast. Comparison is made to exams dated: 04/15/2023 mammogram, 09/05/2017 mammogram, and 01/15/2016 mammogram - [facility]. The left breast is almost entirely fatty (category a/<25% glandular tissue). There is a focal asymmetry in the left breast at 1 o'clock middle depth. This is seen in additional views. No other significant masses or calcifications are seen in the breast. IMPRESSION: INCOMPLETE: NEEDS ADDITIONAL IMAGING EVALUATION The focal asymmetry in the left breast is indeterminate. A targeted ultrasound of the left breast is recommended and will be performed immediately following this exam. Based on the Tyrer Cuzick model (a risk assessment model) the patients lifetime risk is 6.1% and her 10 year risk is 3.3%. According to the ACR, ACS, and NCCN guidelines, an annual breast MRI exam tyson g with mammogram is recommended if the patients lifetime risk is 20% or greater. This exam was interpreted at Station ID: [id number]. NOTE: For mammograms, a report in lay terms will be sent to the patient. Approximately 15% of breast malignancies will not be visualized mammographically. In the management of a palpable breast mass, a negative mammogram must not discourage biopsy of a clinically suspicious lesion. Electronically Signed By: Misti Gabriel M.D. lk/:06/04/2023 09:49:08 ACR BI-RADS Category 0: Incomplete 3340F PARENCHYMAL PATTERN: (F) - The breast(s) demonstrate(s) diffuse fatty replacement. BI-RADS CATEGORY: (0) - 0 Ultrasound [id number] Immediate follow-up LATERALITY: (B)
== END 2023-06-04 08:43 | disposition home or self-care (01) ==
LOC: DI 08:42
PROVIDERS: ATTEND Nurse Practitioner Family
DX: N60.02 Solitary cyst of left breast (principal)

== ENCOUNTER 2023-08-17 06:09 | Emergency (ER) | payer OTHER ==
--- NOTE | 2023-08-17 06:54 | ED Physician Documentation ---
PD HPI URI - Stated complaint Stated Complaint: CHEST PX/VOMITING - Chief complaint Chief Complaint: Resp - History obtained from History obtained from: Patient - History of Present Illness Timing - onset: How many days ago (3) Timing duration: Days (3) Timing details: Gradual onset, Still present Associated symptoms: Ear pain, Nasal congestion, Rhinorrhea, Productive cough, Chest pain, Dyspnea, NVD Improves by: Rest, Medication Worsened by: Activity Similar symptoms before: Diagnosis (COVID uri) Recently seen: Not recently seen - Additional information Additional information: Lucretia Martins is a 68-year-old female with a 3-day history of cough nausea and vomiting. She presents to the emergency department with congestion ear pain wheezing anterior chest pain and vomiting with nausea. She feels she is unable to keep anything down. Review of Systems Constitutional: reports: Myalgias, Fatigue, Sweats. denies: Fever Eyes: denies: Decreased vision Ears: reports: Ear pain Nose: reports: Rhinorrhea / runny nose, Congestion Cardiac: reports: Chest pain / pressure. denies: Palpitations, Pedal edema, Calf pain Respiratory: reports: Dyspnea, Cough, Wheezing GI: reports: Nausea, Vomiting. denies: Abdominal Pain : denies: Dysuria, Frequency PD PAST MEDICAL HISTORY - Past Medical History Past Medical History: Yes Cardiovascular: Hypertension - Present Medications Home Medications: Ambulatory Orders Medication Instructions Recorded Confirmed Estradiol [Estrace] 0.5 mg PO DAILY 10/24/20 03/31/23 Progesterone, Micronized 200 mg PO DAILY 10/24/20 03/31/23 [Prometrium] Ibuprofen [Motrin] 600 mg PO Q6H PRN #60 tab 10/26/20 03/31/23 - Allergies Allergies/Adverse Reactions: Allergies Allergy/AdvReac Type Severity Reaction Status Date / Time Sulfa (Sulfonamide Allergy Emesis Verified 08/17/23 06:22 Antibiotics) walnut Allergy Anaphylaxis Verified 08/17/23 06:22 - Social History Does the pt smoke?: No Smoking Status: Never smoker PD ED PE NORMAL - Vitals Vital signs reviewed: Yes (hypertensive ) - General General: Alert and oriented X 3, No acute distress, Well developed/nourished, Other (vocie sounds congested ) - HEENT HEENT: Atraumatic, PERRL, EOMI, Ears normal, Other (dry mucous membranes ) - Neck Neck: Supple, no meningeal sign, No bony TTP - Cardiac Cardiac: RRR, No murmur - Respiratory Respiratory: No respiratory distress, Clear bilaterally, Other (chest wall tenderness anteriorly reproduces the pain the patient is presenting with. ) - Abdomen Abdomen: Soft, Non tender - Back Back: No CVA TTP, No spinal TTP - Derm Derm: Normal color, Warm and dry, No rash - Extremities Extremities: No deformity, No edema - Neuro Neuro: Alert and oriented X 3, court attendant 2-12 intact, No motor deficit, No sensory deficit, Normal speech Eye Opening: Spontaneous Motor: Obeys Commands Verbal: Oriented GCS Score: 15 - Psych Psych: Normal mood, Normal affect Results - Vitals Vitals: Vital Signs - 24 hr 08/17/23 08/17/23 06:18 06:21 Temperature 37.7 C Heart Rate 79 85 Respiratory 20 12 Rate Blood Pressure 147/87 H O2 Saturation 97 97 Oxygen O2 Source Room air - EKG (time done) 0620 EKG releavant findings:: EKG personally interpreted by author of this note. Relevant findings are: Rate: Rate (enter#) (75) Intervals: Wide QRS, RBBB Compare to prior EKG: Old EKG unavailable Computer interpretation: Agree with computer - Labs Labs: Laboratory Tests 08/17/23 06:25 WBC 3.0 L RBC 3.82 L Hgb 11.3 L Hct 33.0 L MCV 86.4 MCH 29.6 MCHC 34.2 RDW 13.0 Plt Count 221 MPV 8.7 Neut # (Auto) 1.9 Lymph # (Auto) 0.6 L [place] # (Auto) 0.4 Eos # (Auto) 0.0 Baso # (Auto) 0.0 Absolute Nucleated RBC 0.00 Nucleated RBC % 0.0 Procedures - IVC sono (time) 0650 Bedside IVC sono: IVC measures (cm) (1.21), IVC collapsed c insp (cm) (complete), Dehydration (est 1 liter deficit) PD Medical Decision Making - ED course Complexity details: considered differential, d/w patient ED course: 68-year-old Lucretia Martins presents to the emergency department with vomiting for 3 days and a cough for the past 3 days. She has had wheezing with her cough and she has coughed up phlegm but she feels that most of this she has vomited into the toilet and she feels that she is swallowing a significant amount of phlegm. She has had COVID previously twice. She has had a COVID vaccination but had a reaction to it and has not had booster. Here in the emergency room she is given a dose of dexamethasone. The patient has a history of vomiting for 3 days and feels dehydrated I interrogated the inferior vena cava with POCUS and found her to have a vessel of 1.22 cm consistent with a deficit of 1 L. She is given saline. She She has she is not hypoxic examined lungs is not consistent with pneumonia. She does have some tenderness to the chest wall and I suspect this is the chest pain the patient is experiencing. at shift change her work up is pending and care is turned over to the day doc. Departure - Departure Forms: PCP List
[2023-08-17 07:06] LABS: BASOPHILS % (AUTO) 0.3 %; HGB - HEMOGLOBIN 11.3 g/dL (12.0-16.0); LYMPHOCYTES # (AUTO) 0.6 10^3/uL (1.5-3.5); LYMPHOCYTES % (AUTO) 21.3 %; MEAN CORPUSCULAR HEMOGLOBIN 29.6 pg (27.0-31.0); MEAN CORPUSCULAR HGB CONC 34.2 g/dL (32.0-36.0); MEAN CORPUSCULAR VOLUME 86.4 fL (81.0-99.0); MEAN PLATELET VOLUME 8.7 fL (7.9-10.8); MONOCYTES # (AUTO) 0.4 10^3/uL (0.0-1.0); NEUTROPHILS # (AUTO) 1.9 10^3/uL (1.5-6.6); NEUTROPHILS % (AUTO) 64.1 %; PLT - PLATELET COUNT 221 10^3/uL (130-450); RED BLOOD COUNT 3.82 10^6/uL (4.20-5.40)
[2023-08-17] MEDS: DEXAMETHASONE 10 MG/ML VIAL IVP STA (07:27)
[2023-08-17] MEDS: SODIUM CHLORIDE 0.9% 1,000 ML IV STA (07:27)
[2023-08-17 07:29] LABS: ALBUMIN 3.6 g/dL (3.2-5.5); ALBUMIN/GLOBULIN RATIO 1.3 (1.0-2.2); BILIRUBIN,TOTAL 0.3 mg/dL (0.2-1.0); CALCIUM 8.3 mg/dL (8.5-10.3); CREATININE 0.6 mg/dL (0.6-1.3); POTASSIUM 3.4 mmol/L (3.5-4.5); TOTAL PROTEIN 6.4 g/dL (6.4-8.9)
[2023-08-17] MEDS: ALBUTEROL 1 PUFF INH STA (08:10)
[2023-08-17 08:24] LABS: B. PARAPERTUSSIS- RESP PCR PAN NOT DETECTED; B. PERTUSSIS- RESP PCR PANEL NOT DETECTED; C. PNEUMONIAE- RESP PCR PANEL NOT DETECTED; CORONAVIRUS 229E-RESP PCR NOT DETECTED; CORONAVIRUS HKU1-RESP PCR NOT DETECTED; CORONAVIRUS NL63-RESP PCR NOT DETECTED; CORONAVIRUS OC43-RESP PCR NOT DETECTED; HUMAN METAPNEUMOVIRUS NOT DETECTED; INFLUENZA A H1 2009- RESP PCR DETECTED; INFLUENZA B - RESP PCR PANEL NOT DETECTED; M. PNEUMONIAE- RESP PCR PANEL NOT DETECTED; PARAINFLUENZA VIRUS 1 NOT DETECTED; PARAINFLUENZA VIRUS 2 NOT DETECTED; PARAINFLUENZA VIRUS 3 NOT DETECTED; PARAINFLUENZA VIRUS 4 NOT DETECTED; RHINOVIRUS/ENTEROVIRUS NOT DETECTED; RSV- RESP PCR PANEL NOT DETECTED; SARS-CoV-2 -RESP PCR PANEL NOT DETECTED
--- NOTE | 2023-08-17 09:13 | ED Physician Documentation ---
ED Addendum - Addendum Addendum: 08/17/23 09:11 Patient was signed out to me by Dr. Howe awaiting repeat evaluation. Her chest x-ray does not show any evidence of pneumonia but does show possible pulmonary nodule, this can be followed up with an outpatient CT with her doctor. Patient was tested positive for influenza A. She feels like her breathing has improved with albuterol. She had received dexamethasone and IV fluids prior to my evaluation. Symptoms started approximately 72 hours ago. We did discuss Tamiflu, she declines this. We will continue supportive care and have her follow-up with her doctor for further care and for follow-up of the pulmonary nodule. Patient counseled regarding signs and symptoms for which I believe and urgent re-evaluation would be necessary. Patient with good understanding of and agreement to plan and is comfortable going home at this time This document was made in part using voice recognition software. While efforts are made to proofread this document, sound alike and grammatical errors may occur. Departure - Departure Disposition: 01 Home, Self Care Clinical Impression: Influenza A Condition: Good Instructions: ED Flu Follow-Up: Jairo Villatoro MD [Primary Care Provider] - Within 1 week Prescriptions: Albuterol Sulf [Ventolin Hfa Inhaler] 1 - 2 puffs INH Q4HR PRN #1 each PRN Reason: Shortness Of Air/Wheezing Comments: Your prescription was sent to [facility] in [place]. As we discussed you have tested positive for influenza A today. Please follow-up with your doctor for further care. Your chest x-ray does not show any acute abnormalities such as pneumonia. There is a question of a possible small pulmonary nodule, 5 mm. Radiology recommends that you have a CT scan of your chest as an outpatient for further evaluation. Forms: PCP List
[2023-08-17 09:38] VITALS: BP 141/79; O2SAT 99
--- NOTE | 2023-08-17 10:27 | XRAY Report ---
PROCEDURE: Chest 1V INDICATIONS: chest pain TECHNIQUE: One view of the chest was acquired. COMPARISON: 03/31/2023. FINDINGS: Surgical changes and devices: None. Lungs and pleura: No pleural effusions or pneumothorax. Lungs are clear. Possible 5 mm pulmonary no dule in the right apex. Mediastinum: Mediastinal contours appear normal. Heart size is normal. Bones and chest wall: No suspicious bony lesions. Overlying soft tissues appear unremarkable. IMPRESSION: Query 5 mm pulmonary nodule in the right apex. Recommend nonemergent noncontrast CT chest for further evaluation. No other acute cardiopulmonary process visualized. Findings are concordant with preliminary interpretation provided by [facility]. Reviewed by: Neela Otero MD on 08/17/2023 9:25 AM BRIANNA Approved by: Neela Otero MD on 08/17/2023 9:25 AM BRIANNA Station ID: [id number]
== END 2023-08-17 09:31 | disposition home or self-care (01) ==
LOC: ED 06:09
DX: J10.1 Influenza due to other identified influenza virus with other respiratory manifestations (principal); E86.0 Dehydration; R91.8 Other nonspecific abnormal finding of lung field
CPT/HCPCS: 36415; 80053; 83690; 84484; 85025; 87633; 93005; 94640; 96361; 96374; 99284

== ENCOUNTER 2023-08-23 07:00 | Outpatient (CLI) | payer OTHER ==
--- NOTE | 2023-08-25 07:49 | XRAY Report ---
PROCEDURE: Chest 2V INDICATIONS: COUGH TECHNIQUE: 2 views of the chest were acquired. COMPARISON: None. FINDINGS: Surgical changes and devices: None. Lungs and pleura: No pleural effusions or pneumothorax. Lungs are clear. Mediastinum: Mediastinal contours appear normal. Heart size is normal. Bones and chest wall: No suspicious bony lesions. Overlying soft tissues appear unremarkable. IMPRESSION: No acute cardiopulmonary process. Reviewed by: Misti Gabriel MD on 08/25/2023 7:48 AM PDT Approved by: Misti Gabriel MD on 08/25/2023 7:48 AM PDT Station ID: [id number]
== END 2023-08-23 23:59 | disposition home or self-care (01) ==
LOC: DI.S 07:00
PROVIDERS: ATTEND Emergency Medicine
DX: Z09 Encounter for follow-up examination after completed treatment for conditions other than malignant neoplasm (principal); Z87.01 Personal history of pneumonia (recurrent)

== ENCOUNTER 2024-01-15 08:00 | Outpatient (CLI) | payer OTHER ==
--- NOTE | 2024-01-15 17:03 | XRAY Report ---
PROCEDURE: Chest 2V INDICATIONS: PNEUMONIA TECHNIQUE: 2 views of the chest were acquired. COMPARISON: Chest radiograph on August 23, 2023. FINDINGS: Surgical changes and devices: None. Lungs and pleura: No pleural effusions or pneumothorax. Lungs are clear. Mediastinum: Mediastinal contours appear normal. Heart size is normal. Bones and chest wall: No suspicious bony lesions. Overlying soft tissues appear unremarkable. Mil d degenerative changes of the spine. IMPRESSION: No acute cardiopulmonary process. Reviewed by: Ari Collado MD on 01/15/2024 5:02 PM PDT Approved by: Ari Collado MD on 01/15/2024 5:02 PM PDT Station ID: [id number]
== END 2024-01-15 23:59 | disposition home or self-care (01) ==
LOC: DI.S 08:00
PROVIDERS: ATTEND Registered Nurse
DX: R07.89 Other chest pain (principal)